=== PATIENT | female | born 1975 | race Caucasian/White ===

== ENCOUNTER 2017-02-01 08:41 | Day surgery (SDC) | payer OTHER ==
[~2017-02-01 08:41] MED LIST: Buffered Lidocaine 1% SYRIN* 3 ML/SYR SYRINGE INTRADERM ONE; Famotidine IV* 10 MG/ML 2 ML (20 mg) IV ONE
[2017-02-01] MEDS ORDERED: ceFAZolin 2 GM PREMIX(*) 2 GM/50 ML BAG IVPB ONE (09:01)
[2017-02-01] MEDS ORDERED: fentaNYL* 50 MCG/ML 2 ML VIAL (100 MCG VIAL) ONE (09:01)
[2017-02-01] MEDS ORDERED: Midazolam* 1 MG/ML 5 ML VIAL (5 MG) ONE (09:01)
[2017-02-01] MEDS ORDERED: Famotidine IV* 10 MG/ML 2 ML (20 mg) ONE (09:01)
[2017-02-01] MEDS ORDERED: Bupivacaine 0.25% SDV* 30 ML ONE (10:55)
[2017-02-01] MEDS ORDERED: ROPIVACAINE 5 MG/ML 30 ML BTL (0.5%) ONE (10:55)
[2017-02-01] MEDS ORDERED: HYDROmorphone* 1 MG/ML 1 ML SYR IV PRN (12:13)
[2017-02-01] MEDS ORDERED: Acetaminophen TAB* 325 MG PO PRN (12:13)
[2017-02-01] MEDS ORDERED: oxyCODONE/Acetamin 5/325 MG* TAB PO PRN (12:13)
[2017-02-01] MEDS ORDERED: DiMENhydriNATE IV* 50 MG/ML VIAL IV PUSH PRN (12:13)
[2017-02-01] MEDS ORDERED: Propofol* 10 MG/ML 20 ML BTL IV PUSH ONE ×2 (12:43→12:44)
[2017-02-01] MEDS ORDERED: Succinylcholine* 20 MG/ML 10 ML VIAL ONE (12:44)
[2017-02-01] MEDS ORDERED: Dexamethasone IV* 4 MG/ML 1 ML (4 MG) ONE (12:44)
[2017-02-01] MEDS ORDERED: Lidocaine 2% PF * 5 ML VIAL ONE (12:44)
[2017-02-01] MEDS ORDERED: Ketorolac INJ* 30 MG/ML 1 ML VIAL ONE (12:44)
[2017-02-01] MEDS ORDERED: Ondansetron INJ* 2 MG/ML VIAL ONE (12:44)
[2017-02-01] MEDS ORDERED: diPHENhydraMINE IV* 50 MG/ML 1 ml VIAL (BENADRYL) ONE (12:44)
[2017-02-01] MEDS ORDERED: methylPREDNISolone ACETATE 80* 80 MG/ML 1 ML VIAL ONE (13:02)
[2017-02-01 14:00] VITALS: BP 127/82
--- NOTE | 2017-02-02 16:15 | OP ---
DATE OF OPERATION: 02/01/17 [facility] DATE OF : 77 SURGEON: Natalie Galeano MD BUDGET ACCOUNTANT: CHAPARRO Braswell ANESTHESIOLOGIST: Dr. Cifuentes. ANESTHESIA: General interscalene block. PRE-OP DIAGNOSES: Left shoulder impingement, acromioclavicular joint arthritis and biceps tendinitis. POST-OP DIAGNOSES: Left shoulder impingement, acromioclavicular joint arthritis and biceps tendinitis. OPERATIVE PROCEDURE: 1. Left shoulder arthroscopy with extensive glenohumeral debridement including biceps tenotomy. 2. Subacromial decompression with acromioplasty. 3. Distal clavicle excision. 4. Subacromial injection with 80 mg of Depo-Medrol. COMPLICATIONS: None. ESTIMATED BLOOD LOSS: Minimal. INDICATIONS: Lilly Lan is a 41-year-old female who a presumptive left shoulder pain that has been persistent in spite of conservative management. She had an AC joint injection, which helped relieve some of her pain, but she developed persistent pain. She is very active and after an extensive discussion reviewing the risks and benefits of the surgery versus non-operative treatment, she has elected to proceed with treatment. Risks include but are not limited to bleeding, infection, damage to nerves, vessels, surrounding structures, wound not healing, persistent pain, need for further surgery, risks of anesthesia, risk of DVT, scarring, persistent pain, need for further surgery. After extensive discussion, she has elected to proceed with surgery. DESCRIPTION OF PROCEDURE: The patient was greeted in the preoperative area by the attending surgeon. Correct extremity was marked and consent was confirmed. The patient was then brought back to the operating suite, where she was placed in the supine position on the operating table, after which she underwent interscalene nerve block, which she tolerated without difficulty. Patient then underwent general anesthesia with endotracheal intubation, after which the patient was placed in the right lateral decubitus position with an axillary roll. All bony prominences were padded and she was supported with the help of a peg board. Her left arm was draped unsterile and 10-pound retraction, after which the left shoulder was prepped and draped in usual sterile fashion beginning with chlorhexidine soap, scrub and alcohol wipe and the final prep and ChloraPrep. After appropriate surgical pause indicating side, site, procedure, and administration of antibiotics, a standard postero-lateral portal was made with an 11 blade. The scope was introduced into the joint. The joint was examined. There was mild inflammation and hyperemia in the shoulder joint. There is mild fraying of the anterior labrum. Inferior recess was intact. Posterior labrum was intact. The glenohumeral joint had grade 0 changes. She was slightly hyperlaxed as she subluxed somewhat anteriorly however she was not grossly unstable. The rotator cuff head was intact. Supraspinatus and subscapularis were intact. There was abundant synovitis anteriorly in the biceps to take through range of motion and there was the synovitis present, at which point a biceps tenotomy was done. The shaver was used to debride the stump back. The scope was placed in the subacromial space. On arthroscopic exam, there was abundant thick bursa. The shaver was used to remove the abundant bursa that was present. The electrocautery device was used to skeletonize the under- surface of the acromion, which revealed a moderate-sized spur. The AC ligament was carefully peeled back and the arthroscopic jasmyne was used to do an acromioplasty, which exposed the AC joint. The AC joint was found to be quite stenotic with inferior spur that was present. Once the acromioplasty was complete and all loose debris was removed, the rotator cuff was examined and found to be completely intact on the bursal side. Next attention was directed to the acromioclavicular joint. The bur was placed in the anterior portal and a distal clavicular excision was then done with approximately 8 mm of the bone removed with care to prevent damage to the CC ligament. The clavicle was then gently manipulated to make sure there was no evidence of compression. All loose fluid and debris were removed from the joint and 18-gauge needle was placed under arthroscopic visualization. All fluid and debris were removed. The portals were closed with 3-0 nylon. The subacromial space was then injected with 0.25% Marcaine with 80 mg of Depo-Medrol. Sterile dressing was applied and a regular sling was placed. She is awoken from anesthesia and transferred to PACU in stable condition. POSTOPERATIVE PLAN: She will be nonweightbearing. She will be allowed to work. Range of motion as tolerated. She will start therapy likely in the first 10 to 14 days. She will be discharged with pain medication. A DVT prophylaxis considered, but deferred due to no previous personal or family history. I will see the patient back in 10 to 14 days. [id number]/[facility] #: [id number]
== END 2017-02-01 14:00 | disposition home or self-care (01) ==
LOC: OREAST 08:41
PROVIDERS: ATTEND Orthopaedic Surgery
DX: M75.42 Impingement syndrome of left shoulder (principal); M19.012 Primary osteoarthritis, left shoulder; M75.22 Bicipital tendinitis, left shoulder
CPT/HCPCS: J0330; J0690; J1040; J1100; J1200; J1885; J2250; J2405; J2704; J2795; J3010